=== PATIENT | male | born 1980 | race Caucasian/White ===

== ENCOUNTER → 2017-11-09 | Outpatient (CLI) | payer BC ==
[2017-11-09 13:52] LABS: ALKALINE PHOSPHATASE 56 U/L (45-117); ALT/SGPT 134 U/L (12-78); AST/SGOT 59 U/L (15-37); BLOOD UREA NITROGEN 13 mg/dl (7-18); CALCIUM 8.2 mg/dl (8.5-10.1); CARBON DIOXIDE 25 mmol/L (21-32); CHOLESTEROL 107 mg/dl (0-200); CREATININE 0.83 mg/dl (0.60-1.40); GLUCOSE 86 mg/dl (70-99); LDL CHOLESTEROL CALCULATED 62 mg/dl; POTASSIUM 4.2 mmol/L (3.5-5.1); SODIUM 139 mmol/L (136-145); TOTAL PROTEIN 7.1 gm/dl (6.4-8.2)
--- NOTE | 2017-11-15 12:58 | CODING QUERY NO DIAGNOSIS ---
TREATMENT RENDERED WITHOUT A DIAGNOSIS 81 To promote full compliance with coding requirements relating to patient care, physician participation is requested in all cases of and drying supervisor cooking casing uncertainty. Please assist us with providing a diagnosis/symptom for the test(s) below: A diagnosis/symptom was not documented on your Order. A valid diagnosis/symptom is required to bill all insurances. Please remember that we are unable to code a diagnosis of rule out, probable, possible, questionable, or suspected. DOS 11/09/17 Tests that require a diagnosis: * COMP METABOLIC DIAGNOSIS: * LIPID PROFILE FASTING DIAGNOSIS: * TSH DIAGNOSIS: * VITAMIN B12 DIAGNOSIS: Provider Signature: Date: Thank you Janine Hearn [facility] Information Management Once completed, please kindly fax back to [phone] For questions please call [phone]
== END | disposition home or self-care (01) ==
LOC: C.LABBC 09:30
PROVIDERS: ATTEND Family Medicine
DX: Z01.89 Encounter for other specified special examinations (principal)